=== PATIENT | male | born 2000 | race Hispanic/Latino ===

== ENCOUNTER 2022-06-11 16:22 | Emergency (ER) | payer OTHER ==
[~2022-06-11] VITALS: Ht 167.6 cm; Wt 70.2 kg
[2022-06-11] MEDS ORDERED: NS 1,000 ML IV ONE (18:00)
[2022-06-11] MEDS ORDERED: GI COCKTAIL 50ML BTL(HYOSCYAMINE/MAALOX/LIDOCAINE VISCOUS)(1:3:1) PO ONE (18:00)
[2022-06-11 18:20] LABS: BASO % 0.3 % (0.0-1.0); EOS # 0.1 10^3/uL (0.0-0.5); EOS % 0.9 % (0.0-3.0); HEMATOCRIT 43.7 % (42.0-52.0); HEMOGLOBIN 14.3 g/dl (13.5-17.5); LYMPH # 1.6 10^3/uL (1.5-5.0); LYMPH % 27.7 % (24.0-44.0); MEAN CORPUSCULAR HGB CONC 32.7 g/dl (32.0-36.5); MEAN CORPUSCULAR VOLUME 91.8 fl (80.0-96.0); MONO # 0.5 10^3/uL (0.0-0.8); MONO % 8.5 % (2.0-8.0); NEUTROPHILS # 3.6 10^3/uL (1.5-8.5); NEUTROPHILS % 62.4 % (36.0-66.0); PLATELET COUNT, AUTOMATED 170 10^3/uL (150-450); RED BLOOD COUNT 4.76 10^6/uL (4.30-6.10); WHITE BLOOD COUNT 5.8 10^3/uL (4.0-10.0)
[2022-06-11] MEDS ORDERED: ISOVUE-370 76% 100ML VIAL As Ordered ONE (18:37)
[2022-06-11 18:43] LABS: CK-MB VALUE MASS < 1.0 NG/ML (<3.6); CPK CREATINE PHOSPHOKINASE 143 U/L (39-308)
[2022-06-11] MEDS ORDERED: OMEP-173 PO (19:56)
[2022-06-11 20:16] VITALS: BP 157/89
== END 2022-06-11 20:19 | disposition home or self-care (01) ==
LOC: M ED 16:22
DX: R07.89 Other chest pain (principal); I45.10 Unspecified right bundle-branch block; I77.810 Thoracic aortic ectasia
CPT/HCPCS: 71045; 71275; 80047; 82550; 82553; 85025; 93005; 96360; 96361; 99284; Q9967

== ENCOUNTER 2022-11-04 11:54 | Emergency (ER) | payer OTHER ==
[~2022-11-04] VITALS: Ht 170.2 cm; Wt 70.9 kg
[~2022-11-04 11:54] MED LIST: OMEP-173 PO
[2022-11-04] MEDS ORDERED: COMBIVENT RESPIMAT 100-20MCG INHALER 4GM INH STA (13:12)
[2022-11-04] MEDS ORDERED: predniSONE 20 MG TAB PO ONE (13:15)
[2022-11-04] MEDS ORDERED: ACETAMINOPHEN 325 MG TAB PO ONE (13:15)
[2022-11-04] MEDS ORDERED: COMBAER6 INH (14:43)
[2022-11-04] MEDS ORDERED: OSEL75CA PO (14:43)
[2022-11-04] MEDS ORDERED: PRED20TA PO (14:43)
[2022-11-04 14:55] VITALS: BP 137/81
== END 2022-11-04 14:56 | disposition home or self-care (01) ==
LOC: EDBD 11:54 → M ED 11:54
DX: J09.X2 Influenza due to identified novel influenza A virus with other respiratory manifestations (principal); E03.9 Hypothyroidism, unspecified; J45.909 Unspecified asthma, uncomplicated; Z79.899 Other long term (current) drug therapy
CPT/HCPCS: 71045; 87428; 94640; 99284; J7512

== ENCOUNTER 2024-10-24 02:49 | Emergency (ER) | payer OTHER ==
[~2024-10-24] VITALS: Ht 167.6 cm; Wt 66.3 kg
[~2024-10-24 02:49] MED LIST changes: +COMBAER6 INH; +OSEL75CA PO; +PRED20TA PO
[2024-10-24 03:47] LABS: HEMATOCRIT 38.3 % (42.0-52.0); HEMOGLOBIN 13.2 g/dl (13.5-17.5); MEAN CORPUSCULAR HEMOGLOBIN 30.8 pg (27.0-33.0); MEAN CORPUSCULAR HGB CONC 34.5 g/dl (32.0-36.5); MEAN CORPUSCULAR VOLUME 89.3 fl (80.0-96.0); PLATELET COUNT, AUTOMATED 204 10^3/uL (150-450); RED BLOOD COUNT 4.29 10^6/uL (4.30-6.10); WHITE BLOOD COUNT 11.2 10^3/uL (4.0-10.0)
[2024-10-24 04:14] LABS: ALBUMIN 4.3 G/DL (3.2-5.2); ALKALINE PHOSPHATASE 45 U/L (40-129); ALT/SGPT 38 U/L (7.0-40); AST/SGOT 24 U/L (<34); BILIRUBIN,DIRECT 0.4 MG/DL (<0.4); BILIRUBIN,TOTAL 0.8 MG/DL (0.3-1.2); BLOOD UREA NITROGEN 10 MG/DL (9-23); CALCIUM LEVEL 10.3 MG/DL (8.5-10.1); CARBON DIOXIDE LEVEL 25 MMOL/L (20-31); CHLORIDE LEVEL 106 MMOL/L (98-107); CREATININE FOR GFR 0.93 MG/DL (0.70-1.30); GLOMERULAR FILTRATION RATE > 60.0 (>60); GLUCOSE, FASTING 124 MG/DL (60-100); POTASSIUM SERUM 3.7 MMOL/L (3.5-5.1); SODIUM LEVEL 142 MMOL/L (136-145); TOTAL PROTEIN 8.1 G/DL (5.7-8.2)
[2024-10-24 04:17] LABS: INR 1.2; PROTHROMBIN TIME 15.5 SECONDS (12.5-14.5)
[2024-10-24] MEDS: ONDANSETRON 4MG 2ML VIAL IV ONE (04:43)
[2024-10-24] MEDS: KETOROLAC 30 MG/ML 1ML VIAL IV ONE (04:43)
[2024-10-24 04:49] LABS: SALICYLATE LEVEL < 3.0 MG/DL (<30)
[2024-10-24] MEDS: CLINDAMYCIN 600 MG in IV 1 EA IV ONE (05:15)
[2024-10-24] MEDS ORDERED: CLEO300C2 PO (05:18)
[2024-10-24] MEDS ORDERED: NAPR-837 PO (05:18)
[2024-10-24 05:45] VITALS: O2SAT 100
[2024-10-24 05:46] VITALS: BP 130/83
[2024-10-24 06:02] VITALS: TEMP 98.1
== END 2024-10-24 06:03 | disposition home or self-care (01) ==
LOC: M ED 02:49
DX: K04.7 Periapical abscess without sinus (principal); Z79.51 Long term (current) use of inhaled steroids; Z79.2 Long term (current) use of antibiotics; Z79.52 Long term (current) use of systemic steroids
CPT/HCPCS: 36415; 80048; 80076; 80143; 85027; 85610; 96365; 96375; 99284; J0737; J1885; J2405

== ENCOUNTER 2024-12-15 12:52 | Emergency (ER) | payer OTHER ==
[~2024-12-15] VITALS: Ht 162.6 cm; Wt 98.3 kg
[~2024-12-15 12:52] MED LIST changes: +CLEO300C2 PO; +NAPR-837 PO
[2024-12-15] MEDS ORDERED: IBUP200T46 PO (12:59)
[2024-12-15] MEDS ORDERED: ACET-907 PO (15:24)
[2024-12-15] MEDS ORDERED: AMOX875T2 PO (15:24)
[2024-12-15] MEDS ORDERED: IBUP-1022 PO (15:24)
[2024-12-15 15:34] VITALS: BP 148/94; TEMP 99.2; O2SAT 99
[2024-12-15] MEDS: BENZOCAINE 20% GEL 9GM TUBE (ANBESOL MAX STRENGTH) TOP PRN (15:40)
[2024-12-15] MEDS: KETOROLAC 60MG 2ML VIAL IM ONE (15:40)
== END 2024-12-15 15:51 | disposition home or self-care (01) ==
LOC: M ED 12:52
DX: K02.9 Dental caries, unspecified (principal); Z79.1 Long term (current) use of non-steroidal anti-inflammatories (NSAID); Z79.2 Long term (current) use of antibiotics
CPT/HCPCS: 96372; 99283; J1885